=== PATIENT | female | born 1935 | race Caucasian/White ===

== ENCOUNTER 2021-05-18 09:45 | Inpatient (IN) ==
[2021-05-18 10:42] LABS: Basophils % 0.4 %; Eosinophils # 0.1 K/mcL (0.0-0.6); Eosinophils % 0.8 %; Hematocrit 36.1 % (35.3-44.9); Hemoglobin 11.2 g/dL (11.5-15.4); Immature Granulocytes % 0.6 % (0-4); Lymphocytes # 1.4 K/mcL (0.6-4.6); Lymphocytes % 19.1 %; Mean Corpuscular Hemoglobin 28.1 pg (28.0-33.3); Mean Corpuscular Volume 90.5 fL (83.0-100.0); Mean Platelet Volume 9.6 fL (9.4-12.4); Monocytes # 0.6 K/mcL (0.0-1.3); Monocytes % 8.4 %; Neutrophils # 5.1 K/mcL (1.6-8.9); Platelet Count 198 K/mcL (140-400); Red Blood Count 3.99 M/mcL (3.82-4.97); Red Cell Distribution Width 19.9 % (11.5-14.5); Segmented Neutrophils % 70.7 %; White Blood Count 7.3 K/mcL (4.3-11.1)
[2021-05-18 10:59] LABS: INR 1.1; Prothrombin Time 12.3 Seconds (9.4-12.1)
[2021-05-18 11:02] LABS: Activated Partial Thrombo Time 28.4 Seconds (26.0-36.0)
[2021-05-18 11:13] LABS: Alanine Aminotransferase 8 Units/L (7-52); Albumin 4.2 g/dL (3.5-5.7); Albumin/Globulin Ratio 1.4 (1.1-2.2); Alkaline Phosphatase 55 Units/L (34-104); Aspartate Amino Transferase 11 Units/L (13-39); BUN/Creatinine Ratio 23 (6-26); Bilirubin,Direct 0.1 mg/dL (0.0-0.2); Bilirubin,Indirect 0.3 mg/dL (0.0-1.0); Bilirubin,Total 0.4 mg/dL (0.3-1.0); Blood Urea Nitrogen 21 mg/dL (8-23); Calcium 9.4 mg/dL (8.6-10.3); Carbon Dioxide 26 mEq/L (23-29); Chloride 108 mEq/L (98-107); Glucose 102 mg/dL (70-105); Osmolality,Calculated 285 (280-300); Potassium 3.6 mEq/L (3.5-5.1); Sodium 136 mEq/L (136-145); Total Protein 7.2 g/dL (6.4-8.9); Troponin I < 0.03 ng/mL (< 0.04); eGFR For African Americans > 60 (> 60); eGFR For Non-African Americans 58 (> 60)
[2021-05-18 11:33] LABS: Influenza A PCR Negative (Negative); Influenza B PCR Negative (Negative); Resp. Syncytial Virus PCR Negative (Negative); SARS-CoV-2 by PCR (In House) Negative (Negative)
[2021-05-18] MEDS ORDERED: cefTRIAXone 1,000 MG in Water for inj. (sterile) 10 ML IVP ONE (11:45)
[2021-05-18] MEDS ORDERED: Furosemide 40 MG/4 ML VIAL IVP ONE (11:46)
[2021-05-18] MEDS ORDERED: Ondansetron 4 MG/2 ML VIAL IVP PRN (13:49)
[2021-05-18] MEDS ORDERED: Naloxone 0.4 MG/ML INJ IVP PRN (13:49)
[2021-05-18] MEDS ORDERED: Acetaminophen 325 MG TABLET PO PRN (13:49)
[2021-05-18] MEDS ORDERED: Benzonatate 100 MG CAPSULE PO PRN (13:52)
[2021-05-18] MEDS ORDERED: Ipratropium/Albuterol Neb 3 ML IH PRN (13:52)
[2021-05-18] MEDS ORDERED: Perflutren Lipid Microsphere 1.3 ML in 0.9 % Sodium Chloride 8.7 ML IVP PRN (13:54)
[2021-05-18] MEDS: Azithromycin 500 MG in 0.9 % Sodium Chloride 250 ML IVPB SCH (15:08)
[2021-05-18] MEDS: predniSONE 20 MG TABLET PO SCH (15:11)
[2021-05-18] MEDS: Aspirin 81 MG TAB.CHEW PO SCH (15:11)
[2021-05-18] MEDS: Ipratropium/Albuterol Neb 3 ML IH SCH ×2 (15:57→21:05)
[2021-05-19] MEDS: Ipratropium/Albuterol Neb 3 ML IH SCH ×4 (03:48→20:34)
[2021-05-19 06:37] LABS: Basophils % 0.2 %; Hematocrit 32.5 % (35.3-44.9); Hemoglobin 10.2 g/dL (11.5-15.4); Immature Granulocytes % 0.6 % (0-4); Lymphocytes % 15.1 %; Mean Corpuscular HGB Conc 31.4 g/dL (31.6-35.5); Mean Corpuscular Hemoglobin 27.7 pg (28.0-33.3); Mean Corpuscular Volume 88.3 fL (83.0-100.0); Mean Platelet Volume 9.7 fL (9.4-12.4); Monocytes # 0.6 K/mcL (0.0-1.3); Monocytes % 8.9 %; Neutrophils # 4.7 K/mcL (1.6-8.9); Platelet Count 195 K/mcL (140-400); Red Blood Count 3.68 M/mcL (3.82-4.97); Red Cell Distribution Width 19.4 % (11.5-14.5); Segmented Neutrophils % 75.2 %; White Blood Count 6.3 K/mcL (4.3-11.1)
[2021-05-19] MEDS: *HR* Enoxaparin 40 MG/0.4 ML SYRINGE SQ SCH (06:45)
[2021-05-19 06:57] LABS: BUN/Creatinine Ratio 24 (6-26); Blood Urea Nitrogen 23 mg/dL (8-23); Calcium 9.1 mg/dL (8.6-10.3); Carbon Dioxide 25 mEq/L (23-29); Chloride 107 mEq/L (98-107); Glucose 127 mg/dL (70-105); Osmolality,Calculated 291 (280-300); Potassium 3.2 mEq/L (3.5-5.1); Sodium 138 mEq/L (136-145); eGFR For African Americans > 60 (> 60); eGFR For Non-African Americans 56 (> 60)
[2021-05-19] MEDS: Aspirin 81 MG TAB.CHEW PO SCH (08:29)
[2021-05-19] MEDS: amLODIPine 5 MG TABLET PO SCH (08:29)
[2021-05-19] MEDS: Cholecalciferol (D-3) 1,000 UNIT (25MCG) TABLET PO SCH (08:30)
[2021-05-19] MEDS: cefTRIAXone 1,000 MG in 0.9 % Sodium Chloride Mini Bag 100 ML IVP SCH (08:30)
[2021-05-19] MEDS: predniSONE 20 MG TABLET PO SCH (08:30)
[2021-05-19] MEDS: Furosemide 20 MG/2 ML VIAL IVP SCH (08:32)
[2021-05-19] MEDS ORDERED: Potassium Chloride Elixir 20 MEQ/15 ML UDC PO ONE (09:43)
[2021-05-19] MEDS: Azithromycin 500 MG in 0.9 % Sodium Chloride 250 ML IVPB SCH (14:05)
[2021-05-19 20:09] VITALS: O2SAT 96
[2021-05-20] MEDS: Ipratropium/Albuterol Neb 3 ML IH SCH ×2 (04:06→08:15)
[2021-05-20] MEDS: *HR* Enoxaparin 40 MG/0.4 ML SYRINGE SQ SCH (05:57)
[2021-05-20 08:43] LABS: BUN/Creatinine Ratio 31 (6-26); Blood Urea Nitrogen 30 mg/dL (8-23); Calcium 9.5 mg/dL (8.6-10.3); Carbon Dioxide 25 mEq/L (23-29); Chloride 109 mEq/L (98-107); Glucose 95 mg/dL (70-105); Osmolality,Calculated 302 (280-300); Potassium 3.6 mEq/L (3.5-5.1); Sodium 143 mEq/L (136-145); eGFR For African Americans > 60 (> 60); eGFR For Non-African Americans 56 (> 60)
[2021-05-20] MEDS: predniSONE 20 MG TABLET PO SCH (08:53)
[2021-05-20] MEDS: Furosemide 20 MG/2 ML VIAL IVP SCH (08:54)
[2021-05-20] MEDS: Aspirin 81 MG TAB.CHEW PO SCH (08:54)
[2021-05-20] MEDS: amLODIPine 5 MG TABLET PO SCH (08:54)
[2021-05-20] MEDS: Cholecalciferol (D-3) 1,000 UNIT (25MCG) TABLET PO SCH (08:54)
[2021-05-20] MEDS: cefTRIAXone 1,000 MG in 0.9 % Sodium Chloride Mini Bag 100 ML IVP SCH (08:56)
[2021-05-20 10:20] VITALS: BP 148/75; PULSE 64; TEMP 97.9
== END 2021-05-20 11:06 | disposition home or self-care (01) | DRG 193 ==
LOC: 3ANU 09:45 → EMEROOARM 09:45 → SUATTDRO 13:11 → 3ANU 14:12
PROVIDERS: ADMIT Internal Medicine; ATTEND Hospitalist